=== PATIENT | female | born 1960 | race Caucasian/White ===

== ENCOUNTER 2021-12-17 08:42 | Outpatient (REF) | payer BC, SELFPAY ==
--- NOTE | 2021-12-17 08:20 | SKI_PTH ---
PATIENT: Corina Lopez LOC: [facility] U#:[id number] AGE/SX: 61/F ROOM: RE12/17/[address]: Josue Fajardo MD : 1960 BED: DIS: 12/17/2021 SPEC #: [id number] RECD: 12/17/21 17:17 STATUS: DANA REChristian #: [id number] HUSSEIN: 12/17/21 08:[address]: Josue Fajardo DEPT: Surgical Specimen RECD BY: Angelika Rahman ENTERED: 12/17/21 17:18 SP TYPE: AKHIL BOO DR: Julia Ho Tissues: 1 - SKIN BIOPSY(SHAVE/PUNCH) 2 - SKIN BIOPSY(SHAVE/PUNCH) Procedures: SKIN LEVEL 4 Comments: [id number]
== END 2021-12-17 08:43 | disposition home or self-care (01) ==
LOC: LBN 08:42
PROVIDERS: PCP Family Medicine; Visit Provider Otolaryngology
DX: L82.1 Other seborrheic keratosis (principal)
CPT/HCPCS: 88305

== ENCOUNTER 2022-04-29 01:50 | Outpatient (CLI) | payer BC, SELFPAY ==
--- NOTE | 2022-04-29 | DI.US_ITS ---
Exam(s) US BREAST LT COMPLETE MAMMO DIAGNOSTIC UNI EXAM: MAMMO DIAGNOSTIC UNI and U/S breast LT complete CLINICAL HISTORY: BREAST PAIN. TECHNIQUE: Craniocaudal and mediolateral oblique Full Field Digital Mammography views with Computer Aided Diagnosis followed by Tomosynthesis and left breast ultrasound. COMPARISON: Comparison is made with prior examinations. FINDINGS: Mammography/Tomosynthesis: Masses/Architectural Distortion: There is a stable well-circumscribed nodule in the upper inner quadr ant of the left breast. No suspicious nodules or areas of architectural distortion are present. Microcalcifictions: No suspicious pleomorphic-type are seen. Skin Thickening/Nipple Retraction: None. Complete left breast US: Echotexture: Normal appearance of the glandular tissue. Shadowing: No suspicious foci. Cyst: There is a 3 mm simple cyst at the 10 o'clock position of the left breast 3 cm from the nipple. This appears to correspond to the mammographic abnormality. Solid lesions: No suspicious masses are seen. Real-time imaging revealed no suspicious areas of arch itectural distortion or shadowing. Ductal dilation: None. IMPRESSION: 1. No evidence of malignancy is noted. 2. Unless there is more urgent need, follow-up screening mammography is recommended, as per [place] [employer] guidelines. 3. The findings were discussed with the patient on the date of the examination. BI-RADS Category 1 - Negative Breast Density - Category B - Scattered areas of fibroglandular density Breast density Category C or D implies that the patient has dense breast tissue. Dense breast tissue can make it harder to find cancer on a mammogram. Dense breast tissue is also associated with an incr eased risk of breast cancer. This information about the result of the mammogram report was provided to the patient to raise their awareness. Use this report when you speak with the patient about their risks for breast cancer, which includes their family history. At that time, you may recommend additional screening tests (Ultrasoun d or MRI) as these tests may add significant information. A negative radiographic report should not delay biopsy if a dominant or clinically suspicious mass is present. Up to ten percent of cancers are not identified on mammography. A negative report may reinforce clinical impression. Adenosis and dense breasts may obscure an underlying neoplasm. False positive reports average 6 to 10%. Patient will receive a letter notifying them of these results.
== END 2022-04-29 02:10 ==
PROVIDERS: PCP Family Medicine; Visit Provider Physician Assistant
DX: N64.4 Mastodynia (principal); N63.22 Unspecified lump in the left breast, upper inner quadrant; N60.02 Solitary cyst of left breast
CPT/HCPCS: 76642; 77061; 77065; G0279

== ENCOUNTER 2024-12-27 09:35 | Outpatient (REF) | payer MEDICARE, SELFPAY ==
--- NOTE | 2024-12-27 07:32 | SKI_PTH ---
PATIENT: Corina Lopez LOC: [facility] U#:[id number] AGE/SX: 64/F ROOM: RE12/27/[address]: Josue Fajardo MD : 1960 BED: DIS: 12/27/2024 SPEC #: [id number] RECD: 12/27/24 12:43 STATUS: DANA REChristian #: [id number] HUSSEIN: 12/27/24 07:[address]: Josue Fajardo DEPT: Surgical Specimen RECD BY: Angelika Rahman ENTERED: 12/27/24 12:44 SP TYPE: AKHIL BOO DR: Julia Ho Tissues: 1 - SKIN BIOPSY(SHAVE/PUNCH) Procedures: SKIN LEVEL 4 Comments: [id number]
== END 2024-12-27 09:36 | disposition home or self-care (01) ==
LOC: LBN 09:35
PROVIDERS: PCP Family Medicine; Visit Provider Otolaryngology
DX: L82.1 Other seborrheic keratosis (principal)
CPT/HCPCS: 88305